=== PATIENT | female | born 1955 | race Caucasian/White ===

== ENCOUNTER → 2017-04-13 | Outpatient (CLI) | payer BC ==
[2017-04-13 14:22] LABS: T4, Free (Free Thyroxine) 1.16 ng/dL (0.78-2.19)
== END | disposition home or self-care (01) ==
LOC: LABWHC1 13:21
PROVIDERS: ATTEND Obstetrics & Gynecology
DX: E78.4 Other hyperlipidemia (principal)
CPT/HCPCS: 36415; 80061; 82947; 84439; 84443

== ENCOUNTER → 2017-06-07 | Outpatient (CLI) | payer BC ==
[2017-06-07 16:04] LABS: Basophils # (A) 0.1 k/uL (0-0.2); Basophils % (A) 2 %; Eosinophils # (A) 0.6 k/uL (0-0.7); Eosinophils % (A) 7 %; HCT 43.2 % (34.0-46.0); Lymphocytes # (A) 1.9 k/uL (1.0-4.8); Lymphocytes % (A) 24 %; MCH 29.3 pg (25.0-35.0); MCHC 32.4 g/dL (31.0-37.0); MCV 90.4 fL (80.0-100.0); Mean Platelet Volume 7.6; Monocytes # (A) 0.4 k/uL (0-1.0); Monocytes % (A) 5 %; Neutrophils # (A) 4.8 k/uL (1.3-7.7); Neutrophils % (A) 61 %; Platelet Count 224 k/uL (150-450); RBC 4.78 m/uL (3.80-5.40); RDW 13.2 % (11.5-15.5); WBC 7.9 k/uL (3.8-10.6)
== END | disposition home or self-care (01) ==
LOC: PAT 14:55
PROVIDERS: ATTEND Obstetrics & Gynecology
DX: Z01.818 Encounter for other preprocedural examination (principal); Z01.812 Encounter for preprocedural laboratory examination
CPT/HCPCS: 36415; 85025; 93005

== ENCOUNTER → 2017-06-13 | Outpatient (CLI) | payer BC ==
--- NOTE | 2017-06-13 13:25 | BD ---
EXAMINATION TYPE: MG DEXA axial skeleton. DATE OF EXAM: 06/13/2017 COMPARISON: NONE CLINICAL HISTORY: Height: 5 FT 2 IN Weight: 165 FRAX RISK QUESTIONS: Alcohol (3 or more units per day): NO Family History (Parent hip fracture): NO Glucocorticoids (More than 3mos): NO (Ex: prednisone, prednisolone, methylprednisolone, dexamethasone, and hydrocortisone). History of Fracture in Adulthood: NO Secondary Osteoporosis: 1. Type 1 Diabetes: NO 2. Hyperthyroidism: NO 3. Menopause before 45: NO 4. Malnutrition: NO 5. Chronic liver disease: NO Rheumatoid Arthritis: NO Current Tobacco Use: NO RISK FACTORS HISTORY OF: Family History of Osteoporosis: YES Active: YES Postmenopausal woman: If Premenopausal, do you have irregular periods: YES MEDICATIONS: Additional Medications: NONE Additional History: EXAM MEASUREMENTS: Bone mineral densitometry was performed using the [employer]. Bone mineral density as measured about the Lumbar spine is: ----- L1-L4(G/cm2): 1.291 T Score Values are as follows: ----- L2: 0.3 ----- L3: 1.0 ----- L4: 1.5 ----- L1-L4: 0.9 BASELINE Bone mineral density about the R hip (g/cm2): 1.079 Bone mineral density about the L hip (g/cm2): 0.977 T Score values are as follows: -----R Neck: 0.3 -----L Neck: -0.4 -----R Total: 0.9 -----L Total: 0.0 BASELINE IMPRESSION: Normal (Values between +1 and -1 indicate normal bone mass). Consider repeating this study in 5 year s or sooner if there is some new clinical indication. NOTE: T-SCORE=SD OF THE YOUNG ADULT MEAN.
--- NOTE | 2017-06-15 10:48 | MM ---
Reason for exam: screening (asymptomatic). Last mammogram was performed 1 year and 8 months ago. History: Patient is postmenopausal. Family history of breast cancer in mother at age 80. Physical Findings: A clinical breast exam by your physician is recommended on an annual basis and results should be correlated with mammographic findings. MG 3D Screening Mammo W/Cad Bilateral CC and MLO view(s) were taken. Prior study comparison: October 15, 2015, bilateral MG screening mammo w CAD. August 10, 2014, bilateral MG screening mammo w CAD. The breast tissue is heterogeneously dense. This may lower the sensitivity of mammography. No suspicious abnormality. No significant changes when compared with prior studies. ASSESSMENT: Negative, BI-RAD 1 RECOMMENDATION: Routine screening mammogram of both breasts in 1 year.
== END | disposition home or self-care (01) ==
LOC: RADMAMWWP 08:09
PROVIDERS: ATTEND Obstetrics & Gynecology
DX: Z12.31 Encounter for screening mammogram for malignant neoplasm of breast (principal); Z13.820 Encounter for screening for osteoporosis; Z80.3 Family history of malignant neoplasm of breast
CPT/HCPCS: 77063; 77067; 77080

== ENCOUNTER 2017-06-15 06:00 | Day surgery (SDC) | payer BC ==
--- NOTE | 2017-06-14 07:18 | P.HPOB ---
History of Present Illness H&P Date: 06/14/17 Chief Complaint: Post menopausal bleeding This patient is a pleasant 61-year-old 2 para 2 female who presented to my office with complaints of postmenopausal bleeding. Patient's history is such that she had an episode of this approximately 2 years ago that time evaluation including a D&C was negative. Patient not had been any bleeding since until approximately 2 months ago where she's had 2 episodes of what she thought was light menstrual bleeding. Repeat pelvic ultrasound showed chronic fibroids and endometrium of 4 mm. Patient now presents for evaluation by hysteroscopy and repeat D&C. Review of Systems Genitourinary: Reports abnormal vaginal bleeding Menstruation: Reports as per HPI, Reports postmenopausal Past Medical History Past Medical History: GERD/Reflux Additional Past Medical History / Comment(s): Known uterine fibroid. History of Any Multi-Drug Resistant Organisms: None Reported Past Surgical History: Orthopedic Surgery Additional Past Surgical History / Comment(s): ORIF RT FOOT. D & C. COLONOSCOPY Past Anesthesia/Blood Transfusion Reactions: No Reported Reaction Past Psychological History: No Psychological Hx Reported Smoking Status: Never smoker Past Alcohol Use History: None Reported Past Drug Use History: None Reported - Past Family History Mother Family Medical History: Cancer Medications and Allergies Home Medications Medication Instructions Recorded Confirmed Type Acetaminophen-Codeine 300-30mg 1 - 2 tab PO Q4H PRN #30 tablet 10/05/15 Rx [Tylenol #3] Ibuprofen [Motrin] 600 mg PO Q6HR PRN #40 tab 10/05/15 Rx Allergies Allergy/AdvReac Type Severity Reaction Status Date / Time Sulfa (Sulfonamide Allergy Rash/Hives Verified 10/05/15 07:05 Antibiotics) Exam - OBG Physical Exam Abdomen: bowel sounds normal, no diffuse tenderness, no bruit present, no guarding noted, no hepatomegaly, no splenomegaly, no mass Vulva: both: normal Vagina: normal moisture, no discharge, atrophic mucosa Cervix: no lesion, no discharge Uterus: enlarged Results Ultrasound shows an enlarged uterus 10 x 7.3 x 5 cm with known fibroids that have decreased in size. Endometrium was 4 mm. Assessment and Plan Assessment: This is a pleasant 61-year-old 2 para 2 female with a recurrent episode of postmenopausal bleeding. Although her ultrasound is not concerning as far as endometrial thickness, has been 2 years approximately since she's had endometrial sampling and I recommended a repeat endometrial sampling by hysteroscopy D&C. Patient understands this procedure and risks including risks of infection, bleeding, possible uterine perforation. All the patient's questions are answered and a written consent is obtained. (1) Postmenopausal vaginal bleeding Status: Acute Code(s): N95.0 - POSTMENOPAUSAL BLEEDING SNOMED Code(s): 35189990
[2017-06-14 08:22] VITALS: BMI 30.2
[~2017-06-15 06:00] MED LIST: DEXAMETHASONE SOD PHOSPHATE 10 MG/ML 1 ML VIAL IV ONE; HYDROmorphone 0.5 MG/0.5 ML SYRINGE IVP PRN; LACTATED RINGERS 1,000 ML IV SCH; LIDOCAINE 1% 20 ML VIAL (10MG/ML) FOR IV START INTRADERMA PRN; MIDAZOLAM 2 MG/2 ML VIAL IV PRN; MORPHINE SULFATE 2 MG/ML SYRINGE IV PRN; ONDANSETRON 4 MG/2 ML VIAL IVP ONE; Pre Op ABX Message 1 EACH MISC MISCELLANE ONE; SCOPOLAMINE 1.5MG/72HR PATCH TRANSDERM ONE
[2017-06-15] MEDS ORDERED: MIDAZOLAM 2 MG/2 ML VIAL IV ONE (06:48)
[2017-06-15] MEDS ORDERED: FAMOTIDINE 20 MG/2 ML VIAL IV ONE (06:50)
[2017-06-15] MEDS ORDERED: SUCCINYLCHOLINE CHLORIDE 100 MG/5 ML SYR IV ONE (06:58)
[2017-06-15] MEDS ORDERED: LIDOCAINE 1% INJ 10MG/ML (20 ML MDV) ONE (06:58)
[2017-06-15] MEDS ORDERED: LABETALOL 5 MG/ML VIAL MDV ONE (06:58)
[2017-06-15] MEDS ORDERED: PROPOFOL 10 MG/ML 20 ML VIAL IV ONE (06:58)
[2017-06-15] MEDS ORDERED: KETOROLAC 30 MG/ML 1 ML VIAL ONE (06:58)
[2017-06-15] MEDS ORDERED: fentaNYL (PF) 50 MCG/ML 2 ML AMP ONE (06:58)
[2017-06-15 07:00] LABS: Cholesterol 209 mg/dL (<200); HDL Cholesterol 46 mg/dL (40-60); LDL Cholesterol,Calculated 143 mg/dL (0-99); Triglycerides 101 mg/dL (<150)
--- NOTE | 2017-06-15 07:42 | P.OP ---
Date of Procedure: 06/15/17 Preoperative Diagnosis: Post menopausal bleeding Postoperative Diagnosis: Same Procedure(s) Performed: #1: Hysteroscopy. #2: Dilation and curettage Anesthesia: FAYE Surgeon: Frederick Amaya Estimated Blood Loss (ml): 10 Urine output (ml): 20 Pathology: other (Uterine curettings) Condition: stable Disposition: PACU Indications for Procedure: Please see dictated H&P for intimate details of this patient's admission. Brief summary is a pleasant 61-year-old female whose had 2 episodes of postmenopausal bleeding. Patient's evaluations included a pelvic ultrasound shows normal endometrial thickening however now she presents for further evaluation with hysteroscopy D&C. Sharla and I have discussed the surgery and risks: Risks of infection, bleeding, possible uterine perforation. All the patient's questions been answered written consent is obtained. Operative Findings: This patient had a small polypoid type areas of the posterior uterus. This did not look concerning however in general the lining looked somewhat proliferative. Description of Procedure: This patient is taken to the operating room where she is laid in the supine position. She subsequent undergoes general endotracheal anesthesia without incident. With an adequate level of anesthesia she's aced in the dorsal lithotomy position. Examination under anesthesia shows her uterus to be mid position and slightly enlarged due to known uterine fibroids. She has a vaginal perineal prep and drape. I drain the bladder for 20 mL of clear urine. Then placed a speculum in the posterior vagina and anterior lip of cervix is grabbed with an Allis clamp. Uterus is gently sound to 9 cm. Gentle dilation is done at this time to allow the hysteroscope into the uterine cavity. Hysteroscopy is performed there is no evidence of any submucosal fibroids, there is a thickened area posterior wall that looks to be like a polypoid type growth her just proliferative endometrium. There is no overtly concerning areas and the entire uterine cavity. With this done the hysteroscope was then removed. I gently dilate the cervix more to allow a polyp forceps into the uterine cavity, do not remove any tissue with the polyp forceps. I then do a vigorous and thorough 4 quadrant curettage. This tissue is sent off to pathology. There is minimal bleeding. This point the procedure is then ended. The Allis clamp and weighted speculum was removed. All counts are correct 3. There are no complications. Patient's taken recovery room in satisfactory condition.
[2017-06-15 08:01] VITALS: TEMP 97.8
[2017-06-15 08:04] VITALS: RESP 16
[2017-06-15 08:42] VITALS: PULSE 72
[2017-06-15 08:57] VITALS: BP 143/80
== END 2017-06-15 09:30 | disposition home or self-care (01) ==
LOC: OR 06:00
PROVIDERS: ATTEND Obstetrics & Gynecology
DX: N95.0 Postmenopausal bleeding (principal); D25.9 Leiomyoma of uterus, unspecified; K21.9 Gastro-esophageal reflux disease without esophagitis; Z79.899 Other long term (current) drug therapy; Z88.2 Allergy status to sulfonamides
CPT/HCPCS: 81025; 88305; 80061; 83001; 82670; 58558; J2250; J1100; J2405; J2001; J3010; J1885; J0330; J2704

== ENCOUNTER → 2017-11-26 | Outpatient (CLI) | payer BC ==
--- NOTE | 2017-11-27 21:29 | MR ---
EXAMINATION TYPE: MR knee LT wo con DATE OF EXAM: 11/26/2017 COMPARISON: Prior MRI left knee September 01, 2013. HISTORY: Left knee pain per order. Pain for 4 months per patient. TECHNIQUE: Multiplanar, multisequence images of the knee is performed without IV contrast. FINDINGS: MEDIAL MENISCUS: Anterior horn is intact without tear. There is oblique and increased vertical signal posterior horn medial meniscus extending to inferior articular surface sagittal image 24 consistent with full-thickness meniscal tear redemonstrated. LATERAL MENISCUS: Anterior and posterior horns are intact without tear. CRUCIATE LIGAMENTS: The anterior and posterior cruciate ligaments are intact and unremarkable. COLLATERAL LIGAMENTS: The medial collateral ligament and lateral collateral ligament complex are inta ct and unremarkable. EXTENSOR MECHANISM: Visualized quadriceps and patellar tendons are intact. EFFUSION: There is stable small suprapatellar joint effusion. POPLITEAL CYST: Tiny popliteal/gradner cyst is best appreciated on axial images. TRICOMPARTMENT SPACES: Mild tricompartment joint space loss is redemonstrated with minimal spurring CARTILAGE: Fissuring of articular cartilage posterior patellar pulmonary apex is redemonstrated [place] mpartment articular cartilage is otherwise fairly well maintained. BONE MARROW SIGNAL: There is stable 9 mm oval well-circumscribed lesion in the posterior lateral prox imal tibial metaphysis felt to reflect enchondroma or other benign etiology. OTHER: There is stable 1.2 cm oval T2 hyperintense lesion posterior to the distal femoral diaphysis s agittal image 17 possible small soft tissue hemangioma. IMPRESSION: Full-thickness tear posterior horn of medial meniscus is now felt present. Other findings stable as detailed above from prior MRI.
== END | disposition home or self-care (01) ==
LOC: RADMRIMAIN 14:36
PROVIDERS: ATTEND Orthopaedic Surgery
DX: S83.242A Other tear of medial meniscus, current injury, left knee, initial encounter (principal); M71.22 Synovial cyst of popliteal space [Baker], left knee; M89.9 Disorder of bone, unspecified

== ENCOUNTER 2018-10-24 11:14 | Day surgery (SDC) | payer BC ==
[2018-10-07 11:45] VITALS: BMI 29.2
--- NOTE | 2018-10-23 14:39 | HP ---
HISTORY AND PHYSICAL DATE OF SURGERY: 10/24/2018 Sharla Chopra is a 63-year-old patient seen with progressive left knee pain. We discussed treatment options. She elected to proceed with left knee arthroscopy. Consent regarding procedure was obtained. PAST MEDICAL HISTORY: Hypercholesterolemia. PAST SURGICAL HISTORY: Foot surgery. DAILY MEDICATIONS: None. ALLERGIES: SULFA. SOCIAL HISTORY: She denies tobacco use. PHYSICAL EVALUATION OF THE LEFT KNEE: Her range of motion is 0 to 120 degrees. There is a mild effusion present. Tenderness on lateral joint line. Positive lateral Spike's. Ligaments are stable. Hip rotation without pain. Distal neurovascular exam intact. LEFT KNEE RADIOGRAPHS: Reveal moderate medial moderate patellofemoral compartment osteoarthritis. Left knee MRI revealed medial meniscal tear. IMPRESSION: 1. Internal derangement, left knee with medial meniscal tear. 2. Hyperlipidemia. PLAN: Left knee arthroscopy with partial meniscectomy and debridement. MMODL / IJN: [id number] /
[~2018-10-24 11:14] MED LIST changes: -LIDOCAINE 1% 20 ML VIAL (10MG/ML) FOR IV START INTRADERMA PRN; -MORPHINE SULFATE 2 MG/ML SYRINGE IV PRN; -ONDANSETRON 4 MG/2 ML VIAL IVP ONE; -Pre Op ABX Message 1 EACH MISC MISCELLANE ONE; -SCOPOLAMINE 1.5MG/72HR PATCH TRANSDERM ONE
[2018-10-24] MEDS: ONDANSETRON 4 MG/2 ML VIAL IVP ONE ×2 (12:01→14:39)
[2018-10-24] MEDS ORDERED: SCOPOLAMINE 1.5MG/72HR PATCH TRANSDERM ONE (12:21)
[2018-10-24] MEDS ORDERED: FAMOTIDINE 20 MG/2 ML VIAL IVP ONE (12:21)
[2018-10-24] MEDS ORDERED: fentaNYL (PF) 50 MCG/ML 2 ML AMP ONE (13:10)
[2018-10-24] MEDS ORDERED: PROPOFOL 10 MG/ML 20 ML VIAL IV ONE (13:10)
[2018-10-24] MEDS ORDERED: LIDOCAINE 1% INJ 10MG/ML (20 ML MDV) ONE (13:10)
[2018-10-24] MEDS ORDERED: SUCCINYLCHOLINE CHLORIDE 100 MG/5 ML SYR IV ONE (13:10)
[2018-10-24] MEDS ORDERED: METOPROLOL TARTRATE 5 MG/5 ML VIAL IVP ONE (13:10)
[2018-10-24] MEDS ORDERED: BUPIVACAIN-EPI 0.25%-1:200,000 30 ML VIAL INTRAARTIC ONE ×2 (13:16→13:50)
--- NOTE | 2018-10-24 14:09 | P.OP ---
Date of Procedure: 10/24/18 Preoperative Diagnosis: Internal derangement left knee Postoperative Diagnosis: 1. Tear medial meniscus left knee 2. Grade 2 chondromalacia medial femoral condyle left knee 3. Grade 2/3 chondromalacia lateral femoral condyle left knee 4. Reactive synovitis medial, lateral and suprapatellar compartments left knee Procedure(s) Performed: 1. Arthroscopic partial medial meniscectomy left knee 2. Arthroscopic chondroplasty medial femoral condyle left knee 3. Arthroscopic chondroplasty lateral femoral condyle left knee 4.. Arthroscopic partial synovectomy medial, lateral and suprapatellar compartments left knee Anesthesia: KWAKUA, local Surgeon: Dave Murguia Estimated Blood Loss (ml): 7 Pathology: none sent Condition: stable Disposition: PACU Indications for Procedure: 63-year-old patient seen with progressive left knee pain. After having treatment options discussed, she elected to proceed with arthroscopy. Operative Findings: See description of procedure Description of Procedure: Patient was taken to the operative suite. Patient underwent a general anesthetic by the department of anesthesia. Patient was given preoperative antibiotics. The left lower extremity was placed in a well-padded arthroscopic leg rose. The left leg was prepped and draped in the normal sterile orthopedic fashion. A lateral parapatellar and suprapatellar incision was made. Trochars were inserted. Arthroscopy was initiated. Suprapatellar pouch revealed diffuse thick reactive synovitis. The patellofemoral joint appeared to articulate congruently. There was grade 1 chondromalacia with no osteochondral tears present.. The scope was guided into the medial gutter. No loose bodies or plica were identified. The scope was then guided into the medial compartment. A medial parapatellar incision was made. Trocar inserted followed by probe. There was a radial tear involving the junction posterior midbody medial meniscus. There were grade 2 chondromalacia changes medial femoral condyle with osteochondral flap tears present. There was reactive synovitis anteriorly. I performed a partial medial meniscectomy down to stable tissue. I performed a chondroplasty of the medial femoral condyle down to stable tissue. I performed a partial synovectomy decompressing the reactive synovitis. The residual meniscus was stable. The residual osteochondral surface was stable. There was good decompression of the synovitis. Scope and probe were then guided into the intercondylar notch. Cruciates were identified, probed and found to be stable. The scope and probe were then guided into lateral compartment. Lateral meniscus was probed and found to be stable. There were grade 2/3 chondral malacia changes on the weightbearing surface lateral femoral condyle with osteochondral flap tears present. There was some reactive synovitis anteriorly. Of ectomy decompressing reactive synovitis. The residual osteochondral surface was stable. There was good decompression of synovitis. The scope was in guided back into the suprapatellar compartment. I introduced a motorized shaver into the suprapatellar compartment. I debrided some piecemeal fragments of meniscus I encountered. I performed a partial synovectomy decompressing the reactive synovitis within the suprapatellar compartment. The shaver was removed. I took one more look on the entire knee, no residual debris. Instruments were now removed from the joint. The joint was infiltrated with .25% Marcaine. Steri- Strips were applied to the portal sites. Sterile dressings were applied. The patient was placed into a CIERA hose. No tourniquet was utilized. The patient was awakened, transferred to a bed and taken to recovery stable satisfactory condition.
[2018-10-24 14:11] VITALS: TEMP 96.9
[2018-10-24 14:18] VITALS: RESP 16
[2018-10-24] MEDS ORDERED: LABETALOL 5 MG/ML VIAL MDV IVP ONE (15:18)
[2018-10-24 15:46] VITALS: BP 145/86; PULSE 75
== END 2018-10-24 16:48 | disposition home or self-care (01) ==
LOC: OR 11:14
PROVIDERS: ATTEND Orthopaedic Surgery
DX: S83.242A Other tear of medial meniscus, current injury, left knee, initial encounter (principal); X58.XXXA Exposure to other specified factors, initial encounter; M94.262 Chondromalacia, left knee; M65.862 Other synovitis and tenosynovitis, left lower leg; E78.00 Pure hypercholesterolemia, unspecified; E78.5 Hyperlipidemia, unspecified; K21.9 Gastro-esophageal reflux disease without esophagitis; Z79.899 Other long term (current) drug therapy; Z88.2 Allergy status to sulfonamides
CPT/HCPCS: 29881; 29876; J2250; J1100; J2405; J0690; J2001; J3010; J0330; J2704; J1170

== ENCOUNTER → 2019-01-15 | Outpatient (CLI) | payer BC ==
--- NOTE | 2019-01-17 09:55 | MM ---
Reason for exam: screening (asymptomatic). Last mammogram was performed 1 year and 7 months ago. History: Patient is postmenopausal. Family history of breast cancer in mother at age 80. Physical Findings: A clinical breast exam by your physician is recommended on an annual basis and results should be correlated with mammographic findings. MG 3D Screening Mammo W/Cad Bilateral CC and MLO view(s) were taken. Prior study comparison: June 13, 2017, bilateral MG 3d screening mammo w/cad. October 15, 2015, bilateral MG screening mammo w CAD. The breast tissue is heterogeneously dense. This may lower the sensitivity of mammography. There is no discrete abnormality. ASSESSMENT: Negative, BI-RAD 1 RECOMMENDATION: Routine screening mammogram of both breasts in 1 year.
== END | disposition home or self-care (01) ==
LOC: RADMAMWWP 14:00
PROVIDERS: ATTEND Obstetrics & Gynecology
DX: Z12.31 Encounter for screening mammogram for malignant neoplasm of breast (principal)
CPT/HCPCS: 77063; 77067

== ENCOUNTER 2019-03-28 06:12 | Day surgery (SDC) | payer BC ==
[2019-03-27 10:45] VITALS: BMI 30.1
[~2019-03-28 06:12] MED LIST changes: -DEXAMETHASONE SOD PHOSPHATE 10 MG/ML 1 ML VIAL IV ONE; -HYDROmorphone 0.5 MG/0.5 ML SYRINGE IVP PRN; +LIDOCAINE 1% 20 ML VIAL (10MG/ML) FOR IV START INTRADERMA PRN; -MIDAZOLAM 2 MG/2 ML VIAL IV PRN
[2019-03-28 06:58] VITALS: TEMP 97.6
[2019-03-28] MEDS ORDERED: ONDANSETRON 4 MG/2 ML VIAL IVP ONE (07:39)
[2019-03-28] MEDS ORDERED: DEXAMETHASONE SOD PHOSPHATE 10 MG/ML 1 ML VIAL IV ONE (07:40)
[2019-03-28] MEDS ORDERED: SCOPOLAMINE 1.5MG/72HR PATCH TRANSDERM ONE (07:40)
[2019-03-28] MEDS ORDERED: fentaNYL (PF) 50 MCG/ML 2 ML AMP ONE (07:50)
[2019-03-28] MEDS ORDERED: PROPOFOL 10 MG/ML 20 ML VIAL IV ONE (07:50)
[2019-03-28] MEDS ORDERED: MIDAZOLAM 2 MG/2 ML VIAL ONE (07:50)
[2019-03-28] MEDS ORDERED: LIDOCAINE 1% INJ 10MG/ML (20 ML MDV) ONE (07:50)
--- NOTE | 2019-03-28 08:12 | P.PCN ---
Date of Procedure: 03/28/19 Procedure(s) Performed: Brief history: Patient is a pleasant 63-year-old white female scheduled for an elective upper endoscopy as well as colonoscopy as a part of evaluation of GERD and history of colon polyps. Procedure performed: Esophagogastroduodenoscopy with biopsy Colonoscopy Preoperative diagnosis: GERD History of colon polyps Anesthesia: MAC Procedure: After informed consent was obtained from the patient was brought into the endoscopy unit and IV sedation was administered by anesthesia under continuous monitoring. Initially upper endoscopy was done. The Olympus GF 160 video endoscope was inserted inserted into the mouth and esophagus intubated without any difficulty and was gradually advanced into the stomach and duodenum and carefully examined. The bulb and second part of the duodenum appeared normal. The scope was then withdrawn into the stomach adequately insufflated with air and upon careful examination the antrum had mild gastritis and biopsies were done from this area. The body, cardia and fundus appeared normal. The scope was then withdrawn into the esophagus. The GE junction was located at 40 cm to the incisors. It appeared regular with mild patchy erythema consistent with LA grade a reflux esophagitis. Rest of the esophagus appeared normal. Patient tolerated the procedure well. At this time the patient continued to remain sedation. Initial digital rectal examination was normal. Olympus CF 160 video colonoscope was then inserted into the rectum and gradually advanced to the cecum without any difficulty. Careful examination was performed as the scope was gradually being withdrawn. The prep was excellent. The cecum, ascending colon, transverse colon, descending colon, sigmoid colon and rectum appeared normal. Retroflexion was performed in the rectum and no lesions were noted. Patient tolerated the procedure well. Impression: 1. Upper endoscopy revealed mild antral gastritis and LA grade A reflux esophagitis 2. Colonoscopy was essentially within normal limits with no evidence of colitis or colorectal neoplasia Recommendations: Findings of this examination were discussed with the patient as well as[ her family. She was advised to follow with the biopsy results. She can use [id number] H2 blockers as needed for reflux symptoms. She can have a repeat surveillance colonoscopy in 5 years from now because of the prior history of colon polyps
[2019-03-28 08:16] VITALS: RESP 16
[2019-03-28 08:26] VITALS: BP 145/83; PULSE 67
== END 2019-03-28 08:48 | disposition home or self-care (01) ==
LOC: ORWHC2ENDO 06:12
PROVIDERS: ATTEND Internal Medicine Gastroenterology
DX: Z12.11 Encounter for screening for malignant neoplasm of colon (principal); Z86.010 Personal history of colon polyps; K21.0 Gastro-esophageal reflux disease with esophagitis; K29.50 Unspecified chronic gastritis without bleeding; E78.5 Hyperlipidemia, unspecified; G43.909 Migraine, unspecified, not intractable, without status migrainosus; M25.552 Pain in left hip; Z88.2 Allergy status to sulfonamides; Z91.09 Other allergy status, other than to drugs and biological substances
CPT/HCPCS: 88305; 43239; J2250; J1100; J2405; J2001; J3010; J2704; G0105; 45378

== ENCOUNTER → 2020-02-12 | Outpatient (CLI) | payer BC ==
--- NOTE | 2020-02-13 14:42 | MM ---
Reason for exam: screening (asymptomatic). Last mammogram was performed 1 year and 1 month ago. History: Patient is postmenopausal. Family history of breast cancer in mother at age 80. Physical Findings: A clinical breast exam by your physician is recommended on an annual basis and results should be correlated with mammographic findings. MG 3D Screening Mammo W/Cad Bilateral CC and MLO view(s) were taken. Prior study comparison: January 15, 2019, bilateral MG 3d screening mammo w/cad. June 13, 2017, bilateral MG 3d screening mammo w/cad. Focal asymmetry left upper outer quadrant, anterior position. This finding is changed when compared with previous exams. ASSESSMENT: Incomplete: need additional imaging evaluation, BI-RAD 0 RECOMMENDATION: Special view mammogram of the left breast. If lesion persists on supplemental views, image directed ultrasound is recommended. [facility] will attempt to contact patient to return for supplemental views and ultrasound if indicated.
== END | disposition home or self-care (01) ==
LOC: RADMAMWWP 13:54
PROVIDERS: ATTEND Obstetrics & Gynecology
DX: Z12.31 Encounter for screening mammogram for malignant neoplasm of breast (principal); Z80.3 Family history of malignant neoplasm of breast
CPT/HCPCS: 77063; 77067

== ENCOUNTER → 2020-02-17 | Outpatient (CLI) | payer BC ==
--- NOTE | 2020-02-17 11:21 | MM ---
Reason for exam: additional evaluation requested from abnormal screening. Last mammogram was performed less than 1 month ago. History: Patient is postmenopausal. Family history of breast cancer in mother at age 80. Physical Findings: Nurse did not find any significant physical abnormalities on exam. MG 3D Work Up W/Cad LT Spot compression CC, spot compression MLO, and LM view(s) were taken of the left breast. Prior study comparison: February 12, 2020, bilateral MG 3d screening mammo w/cad. January 15, 2019, bilateral MG 3d screening mammo w/cad. The breast tissue is heterogeneously dense. This may lower the sensitivity of mammography. Focal asymmetry left upper outer quadrant, decreased on compression, ML view. This finding is changed when compared with previous exams. These results were verbally communicated with the patient and result sheet given to the patient on 02/17/20. ASSESSMENT: Incomplete: need additional imaging evaluation, BI-RAD 0 RECOMMENDATION: Ultrasound of the left breast.
--- NOTE | 2020-02-17 11:22 | USB ---
Reason for exam: additional evaluation requested from abnormal screening. History: Patient is postmenopausal. Family history of breast cancer in mother at age 80. US Breast Workup Limited LT Technologist: Hannah Boone Left limited breast ultrasound including focal area of concern, retroareolar and axilla demonstrates no cystic or solid lesion seen. These results were verbally communicated with the patient and result sheet given to the patient on 02/17/20. ASSESSMENT: Negative, BI-RAD 1 RECOMMENDATION: Follow-up diagnostic mammogram of the left breast in 6 months.
== END | disposition home or self-care (01) ==
LOC: RADMAMWWP 09:43
PROVIDERS: ATTEND Obstetrics & Gynecology
DX: R92.8 Other abnormal and inconclusive findings on diagnostic imaging of breast (principal)
CPT/HCPCS: 77061; 77065

== ENCOUNTER → 2020-08-18 | Outpatient (CLI) | payer BC ==
--- NOTE | 2020-08-18 14:53 | MM ---
Reason for exam: follow-up at short interval from prior study. Last mammogram was performed 6 months ago. History: Patient is postmenopausal. Family history of breast cancer in mother at age 80. Physical Findings: Nurse did not find any significant physical abnormalities on exam. MG 3D Diag Mammo W/Cad LT CC and MLO view(s) were taken of the left breast. Prior study comparison: February 17, 2020, left breast MG 3d work up w/cad LT. February 12, 2020, bilateral MG 3d screening mammo w/cad. The breast tissue is heterogeneously dense. This may lower the sensitivity of mammography. Asymmetric breast tissue left upper outer quadrant, stable. There is no discrete abnormality. These results were verbally communicated with the patient and result sheet given to the patient on 08/18/20. ASSESSMENT: Benign, BI-RAD 2 RECOMMENDATION: Return to routine screening mammogram schedule for both breasts. Back on schedule for February 2021.
== END | disposition home or self-care (01) ==
LOC: RADMAMWWP 10:28
PROVIDERS: ATTEND Obstetrics & Gynecology
DX: N64.89 Other specified disorders of breast (principal); R92.2 Inconclusive mammogram; Z80.3 Family history of malignant neoplasm of breast; Z78.0 Asymptomatic menopausal state
CPT/HCPCS: 77061; 77065

== ENCOUNTER 2021-01-30 21:22 | Emergency (ER) | payer BC ==
[2021-01-30 22:06] VITALS: TEMP 99.3
[2021-01-30] MEDS ORDERED: BAMLANIVIMAB (EUA) 700 MG, ETESEVIMAB (EUA) 1,400 MG in SODIUM CHLORIDE 0.9% 50 ML IVPB ONE (23:15)
[2021-01-30] MEDS ORDERED: SODIUM CHLORIDE 0.9% 50 ML IVPB ONE (23:15)
--- NOTE | 2021-01-30 23:23 | ED ---
URI HPI - General Chief Complaint: Upper Respiratory Infection Stated Complaint: COVID Test Time Seen by Provider: 01/30/21 22:50 Source: patient, RN notes reviewed Mode of arrival: ambulatory Limitations: no limitations - History of Present Illness Initial Comments: Patient is a 65-year-old female that presents to the emergency Department stating that she tested positive at home for Covid but once or be test in the emergency room. Patient notes she has a mild cough and fatigue and diarrhea. She denied any other symptoms. She was otherwise well-appearing. She notes she is tolerating orals well. She denied chest pain shortness of breath headache nausea vomiting constipation fever fatigue chills. - Related Data Home Medications Medication Instructions Recorded Confirmed No Known Home Medications 03/27/19 03/28/19 Allergies Allergy/AdvReac Type Severity Reaction Status Date / Time adhesive tape Allergy Rash/Hives,REDNESS Verified 01/30/21 22:06 AND BUMPS" Sulfa (Sulfonamide Allergy Rash/Hives Verified 01/30/21 22:06 Antibiotics) Review of Systems ROS Statement: Those systems with pertinent positive or pertinent negative responses have been documented in the HPI. ROS Other: All systems not noted in ROS Statement are negative. Past Medical History Past Medical History: GERD/Reflux, Hyperlipidemia, Osteoarthritis (OA) Additional Past Medical History / Comment(s): " SOME PROBLEMS WITH POSITIONING OF LEFT LEG AND HIP " , MIGRAINE HEADACHES , RETAINS FLUID IN LEGS AT TIMES History of Any Multi-Drug Resistant Organisms: None Reported Past Surgical History: Orthopedic Surgery Additional Past Surgical History / Comment(s): ORIF RT FOOT, ARTHROSCOPIC LEFT KNEE. D & C. COLONOSCOPY Past Anesthesia/Blood Transfusion Reactions: Motion Sickness Past Psychological History: No Psychological Hx Reported Smoking Status: Never smoker Past Alcohol Use History: Rare Past Drug Use History: None Reported - Past Family History Mother Family Medical History: Cancer Additional Family Medical History / Comment(s): BREAST CANCER General Exam Limitations: no limitations General appearance: alert, in no apparent distress Head exam: Present: atraumatic, normocephalic, normal inspection Eye exam: Present: normal appearance, PERRL, EOMI. Absent: scleral icterus, conjunctival injection, periorbital swelling ENT exam: Present: normal exam, mucous membranes moist Neck exam: Present: normal inspection. Absent: tenderness, meningismus, lymphadenopathy Respiratory exam: Present: normal lung sounds bilaterally. Absent: respiratory distress, wheezes, rales, rhonchi, stridor Cardiovascular Exam: Present: regular rate, normal rhythm, normal heart sounds. Absent: systolic murmur, diastolic murmur, rubs, gallop, clicks Extremities exam: Present: normal inspection, full ROM, normal capillary refill. Absent: tenderness, pedal edema, joint swelling, calf tenderness Neurological exam: Present: alert, oriented X3 Psychiatric exam: Present: normal affect, normal mood Skin exam: Present: warm, dry, intact, normal color. Absent: rash Course Vital Signs 01/30/21 22:02 Temperature 99.3 F Pulse Rate 89 Respiratory 16 Rate Blood Pressure 139/88 O2 Sat by Pulse 96 Oximetry Medical Decision Making - Medical Decision Making 65-year-old female positive at-home Covid test, fatigue and diarrhea with a cough. Covid test 3 ordered. Covid test positive. Patient does meet criteria for monoclonal antibody infusion and wishes to undergo infusion. Patient is agreeable with discharge home after infusion. Case discussed with Dr. Villela, patient can discharge home. - Lab Data Lab Results 01/30/21 Range/Units 22:09 Coronavirus (PCR) Detected A (Not Detectd) Disposition Clinical Impression: COVID Disposition: HOME SELF-CARE Condition: Stable Instructions (If sedation given, give patient instructions): Coronavirus Disease 2019 (COVID-19) Additional Instructions: Please return to the Emergency Department if symptoms worsen or any other concerns. Follow-up with primary care 1-2 days. Quarantine per CDC guidelines. Take Tylenol Motrin as needed for any fevers. Is patient prescribed a controlled substance at d/c from ED?: No Referrals: Sourav Jacobs DO [Primary Care Provider] - 1-2 days Time of Disposition: 23:23
[2021-01-31 00:49] VITALS: BP 134/75; PULSE 71; RESP 20
== END 2021-01-31 00:48 | disposition home or self-care (01) ==
LOC: EC 21:22
DX: U07.1 COVID-19 (principal); Z88.2 Allergy status to sulfonamides; Z91.09 Other allergy status, other than to drugs and biological substances
CPT/HCPCS: 87635; 99284; 96365; U0003; U0005; J3490

== ENCOUNTER → 2021-12-09 | Outpatient (CLI) | payer BC ==
--- NOTE | 2021-12-09 12:55 | CA ---
Transthoracic Echo Report Name: Sharla Chopra Age: 66 Gender: F : 1955 Exam Date: 12/09/2021 08:36 Exam Location: [facility] Ht (in): 63 Wt (lb): 133 Ordering Physician: Sourav Jacobs DO Attending/Referring Phys: Frederick Amaya MD Machine Tech Shannon Vásquez RDCS Procedure CPT: Indications: R07.9 chest pressure Cardiac Hx: Technical Quality: Good Contrast 1: N/A Total Dose (mL): Contrast 2: Total Dose (mL): MEASUREMENTS (Male / Female) Normal Values 2D ECHO LV Diastolic Diameter PLAX 3.8 cm 4.2 - 5.9 / 3.9 - 5.3 cm LV Systolic Diameter PLAX 2.9 cm IVS Diastolic Thickness 1.0 cm 0.6 - 1.0 / 0.6 - 0.9 cm LVPW Diastolic Thickness 1.1 cm 0.6 - 1.0 / 0.6 - 0.9 cm LV Relative Wall Thickness 0.5 RV Internal Dim ED PLAX 2.7 cm LA Systolic Diameter LX 2.8 cm 3.0 - 4.0 / 2.7 - 3.8 cm M-MODE Aortic Root Diameter MM 2.4 cm LA Systolic Diameter MM 3.2 cm LA Ao Ratio MM 1.3 MV E Point Septal Separation 0.3 cm AV Cusp Separation MM 1.6 cm DOPPLER MV Area PHT 3.5 cm??? Mitral E Point Velocity 72.5 cm/s Mitral A Point Velocity 61.7 cm/s Mitral E to A Ratio 1.2 MV Deceleration Time 214.7 ms MV E' Velocity 6.2 cm/s Mitral E to MV E' Ratio 11.8 TR Peak Velocity 200.6 cm/s TR Peak Gradient 16.1 mmHg Right Ventricular Systolic Press 21.1 mmHg FINDINGS Left Ventricle Left ventricular ejection fraction is estimated at 50-55%. Mildly increased left ventricular wall thickness. Right Ventricle Normal right ventricular size and function. Right Atrium Normal right atrial size. Left Atrium Normal left atrial size. Mitral Valve Structurally normal mitral valve. Mild mitral regurgitation. Aortic Valve Trileaflet aortic valve. Aortic valve sclerosis. Tricuspid Valve Structurally normal tricuspid valve. Pulmonic Valve Structurally normal pulmonic valve. Pericardium Normal pericardium. Aorta Normal size aortic root and proximal ascending aorta. CONCLUSIONS Normal left ventricular dimension and systolic function Aortic sclerosis without stenosis or insufficiency Previewed by: Dr. Garcia Daniels MD (Electronically Signed) Final Date: 09 December 2021 12:55
== END | disposition home or self-care (01) ==
LOC: RADECHMAIN 08:20
PROVIDERS: ATTEND Family Medicine
DX: R07.9 Chest pain, unspecified (principal); E78.5 Hyperlipidemia, unspecified
CPT/HCPCS: 93017; 93306

== ENCOUNTER → 2021-12-15 | Outpatient (CLI) | payer BC ==
--- NOTE | 2021-12-15 09:46 | BD ---
EXAMINATION TYPE: Axial Bone Density DATE OF EXAM: 12/15/2021 COMPARISON: NONE CLINICAL HISTORY: 66 years year old Female. ICD-10 CODE: M81.0 AGE-RELATED OSTEOPOROSIS W Height: 5 FT 1 1/2 IN Weight: 135 FRAX RISK QUESTIONS: Alcohol (3 or more units per day): NO Family History (Parent hip fracture): NO Glucocorticoids (More than 3mos): NO (Ex: prednisone, prednisolone, methylprednisolone, dexamethasone, and hydrocortisone). History of Fracture in Adulthood: NO Secondary Osteoporosis: 1. Type 1 Diabetes: NO 2. Hyperthyroidism: NO 3. Menopause before 45: NO 4. Malnutrition: NO 5. Chronic liver disease: NO Rheumatoid Arthritis: NO Current Tobacco Use: NO RISK FACTORS HISTORY OF: Surgery to Spine/Hip(right/left)/Wrist (right/left): NO Family History of Osteoporosis: NO Active: YES Diet low in dairy products/other sources of calcium: NO Postmenopausal woman: YES Take estrogen and/or progesterone medications: NO Lost more than 2 inches in height since high school: YES Frequent falls: NO Poor Health: GOOD Hyperparathyroidism: NO Adrenal Insufficiency: NO MEDICATIONS: Additional Medications: NONE Additional History: EXAM MEASUREMENTS: Bone mineral densitometry was performed using the [employer] System. Bone mineral density as measured about the Lumbar spine is: ----- L1-L4(G/cm2): 1.203 T Score Values are as follows: ----- L1: -0.2 ----- L2: -0.6 ----- L3: 0.6 ----- L4: 0.6 ----- L1-L4: 0.2 Bone mineral density has: DECREASED -6.8 % since study of: 2018 Bone mineral density about the R hip (g/cm2): 0.928 Bone mineral density about the L hip (g/cm2): 0.803 T Score values are as follows: -----R Neck: -0.8 -----L Neck: -1.7 -----R Total: -0.3 -----L Total: -1.5 Bone mineral density has: DECREASED -15.7 % since study of: 2018 FRAX%s: The graph provided illustrates a 9.5 % chance for a major osteoporotic fx and a 1.1 % chance for the hips probability for fx in 10 years time. IMPRESSION: Osteopenia (T Score between -2.5 and -1). There is slightly increased risk of fracture and the patient may be considered for treatment. Re-Screen 2-5 years. NOTE: T-SCORE=SD OF THE YOUNG ADULT MEAN.
--- NOTE | 2021-12-16 08:07 | MM ---
Reason for Exam: Screening (asymptomatic). Last mammogram was performed 1 year(s) and 10 month(s) ago. Patient History: Menarche at age 16. First Full-Term at age 31. Postmenopausal. Mother had breast cancer, age 80. Risk Values: Kim 5 year model risk: 2.9%. NCI Lifetime model risk: 11.3%. Prior Study Comparison: 02/12/2020 Bilateral Screening Mammogram, [facility]. 02/17/2020 Left Diagnostic Mammogram, [facility]. 08/18/2020 Left Diagnostic Mammogram, [facility]. Tissue Density: The breast tissue is heterogeneously dense. This may lower the sensitivity of mammography. Findings: Analyzed By CAD. There is no suspicious group of microcalcifications or new suspicious mass in either breast. No significant change to prior examinations. Overall Assessment: Benign, BI-RAD 2 Management: Screening Mammogram of both breasts in 1 year. A clinical breast exam by your physician is recommended on an annual basis and results should be correlated with mammographic findings. Electronically signed and approved by: Ole Rose D.O.
== END | disposition home or self-care (01) ==
LOC: RADMAMWWP 08:56
PROVIDERS: ATTEND Family Medicine
DX: Z12.31 Encounter for screening mammogram for malignant neoplasm of breast (principal); M81.0 Age-related osteoporosis without current pathological fracture
CPT/HCPCS: 77063; 77067; 77080

== ENCOUNTER → 2021-12-26 | Outpatient (CLI) | payer BC ==
[2021-12-26 19:06] LABS: Basophils # (A) 0.08 X 10*3/uL (0.00-0.10); Basophils % (A) 1.2 %; Eosinophils # (A) 0.29 X 10*3/uL (0.04-0.35); Eosinophils % (A) 4.5 %; HCT 41.7 % (37.2-46.3); HGB 13.7 g/dL (12.0-15.0); Immature Grans, Automated 0.3 %; Lymphocytes # (A) 1.78 X 10*3/uL (0.90-5.00); Lymphocytes % (A) 27.8 %; MCH 30.1 pg (27.0-32.0); MCHC 32.9 g/dL (32.0-37.0); MCV 91.6 fL (80.0-97.0); Mean Platelet Volume 10.8 fL (9.5-12.2); Monocytes # (A) 0.35 X 10*3/uL (0.20-1.00); Monocytes % (A) 5.5 %; NRBC Per 100 WBC 0 /100 WBCS (0.0-0.0); Neutrophils # (A) 3.89 X 10*3/uL (1.80-7.70); Neutrophils % (A) 60.7 %; Platelet Count 211 X 10*3/uL (140-440); RBC 4.55 X 10*6/uL (4.10-5.20); RDW 13.1 % (11.5-14.5); WBC 6.41 X 10*3/uL (4.50-10.00)
== END | disposition home or self-care (01) ==
LOC: LABPAT 11:23
PROVIDERS: ATTEND Surgery
DX: Z01.812 Encounter for preprocedural laboratory examination (principal)
CPT/HCPCS: 85025

== ENCOUNTER 2021-12-30 08:42 | Day surgery (SDC) | payer BC ==
[2021-12-29 10:12] VITALS: BMI 23.5
--- NOTE | 2021-12-29 16:14 | P.GSHP ---
History of Present Illness H&P Date: 12/29/21 Chief Complaint: Bilateral inguinal hernia 66-year-old female seen in the office 6 weeks ago. Patient with complaints of 2-3 months left groin discomfort with bulge. Symptoms aggravated by standing. No history of prior hernias. Past Medical History Past Medical History: GERD/Reflux, Hyperlipidemia, Osteoarthritis (OA) Additional Past Medical History / Comment(s): " has left hip pain when rotated- uses pillow under knees",cholesterol resolved with wt loss,occas fluid retention joie legs History of Any Multi-Drug Resistant Organisms: None Reported Past Surgical History: Orthopedic Surgery Additional Past Surgical History / Comment(s): ORIF RT FOOT, ARTHROSCOPIC LEFT KNEE. D & C. COLONOSCOPY Past Anesthesia/Blood Transfusion Reactions: Motion Sickness Smoking Status: Never smoker - Past Family History Mother Family Medical History: Cancer Additional Family Medical History / Comment(s): BREAST CANCER Father Family Medical History: CVA/TIA Medications and Allergies Home Medications Medication Instructions Recorded Confirmed Type No Known Home Medications 03/27/19 12/29/21 History Allergies Allergy/AdvReac Type Severity Reaction Status Date / Time adhesive tape Allergy Rash/Hives,REDNESS Verified 12/29/21 08:43 AND BUMPS"-paper tape is ok Sulfa (Sulfonamide Allergy Rash/Hives Verified 12/29/21 08:43 Antibiotics) Surgical - Exam Physical exam: General: Well-developed, well-nourished HEENT: Normocephalic, sclerae nonicteric Abdomen: Nontender, nondistended, reducible bilateral inguinal hernia left greater than right Extremities: No edema Neuro: Alert and oriented Assessment and Plan (1) Bilateral inguinal hernia Narrative/Plan: 66-year-old female with bilateral inguinal hernia identified on recent exam. Patient is primarily symptomatic on the left-hand side although does admit to some mild soreness on the right. We'll proceed with laparoscopic bilateral da Driss assisted repair inguinal hernia with mesh, possible open. Risks of bleeding, infection, recurrence, bladder and bowel injury, numbness, nerve injury, conversion to an open procedure were discussed with the patient. The patient understands and wishes to proceed. Status: Acute Code(s): K40.20 - BI INGUINAL HERNIA, W/O OBST OR GANGRENE, NOT SPCF RECUR SNOMED Code(s): 54125696
[~2021-12-30 08:42] MED LIST changes: +ACETAMINOPHEN TAB 500 MG TAB PO PRN; +DEXAMETHASONE SOD PHOSPHATE 4 MG/ML 1 ML VIAL IV ONE; +HEPARIN SODIUM,PORCINE/PF 5,000 UNIT/0.5 ML SYRINGE SQ PRN; +HYDROmorphone 0.5 MG/0.5 ML SYRINGE IVP PRN; -LIDOCAINE 1% 20 ML VIAL (10MG/ML) FOR IV START INTRADERMA PRN; +MIDAZOLAM 2 MG/2 ML VIAL IV PRN; +ONDANSETRON 4 MG/2 ML VIAL IVP ONE; +SCOPOLAMINE 1 MG/72 HR PATCH TRANSDERM ONE
[2021-12-30] MEDS ORDERED: LIDOCAINE 1% (10MG/ML) FOR IV START INTRADERMA ONE (09:30)
[2021-12-30] MEDS ORDERED: fentaNYL (PF) 50 MCG/ML 2 ML AMP IV ONE (10:02)
[2021-12-30] MEDS ORDERED: ePHEDrine 50 MG/ML 1 ML VIAL ONE (10:15)
[2021-12-30] MEDS ORDERED: fentaNYL (PF) 50 MCG/ML 2 ML AMP ONE (10:15)
[2021-12-30] MEDS ORDERED: ROPIVACAINE 5 MG/ML 30 ML VIAL ONE (10:15)
[2021-12-30] MEDS ORDERED: LIDOCAINE 2% INJ 20 MG/ML (2 ML VIAL) ONE (10:15)
[2021-12-30] MEDS ORDERED: GLYCOPYRROLATE 0.2 MG/ML 2 ML VIAL ONE (10:15)
[2021-12-30] MEDS ORDERED: NEOSTIGMINE 1 MG/ML 10 ML VIAL ONE (10:15)
[2021-12-30] MEDS ORDERED: ROCURONIUM 10 MG/ML (5 ML VIAL) IV ONE (10:15)
[2021-12-30] MEDS ORDERED: SUCCINYLCHOLINE CHLORIDE 200 MG/10 ML VIAL IV ONE (10:15)
[2021-12-30] MEDS ORDERED: PROPOFOL 10 MG/ML 20 ML VIAL IV ONE (10:15)
[2021-12-30] MEDS ORDERED: SODIUM CHLORIDE 0.9% (PF) 10 ML VIAL ONE (10:15)
[2021-12-30] MEDS ORDERED: diphenhydrAMINE 50 MG/ML 1 ML VIAL ONE (10:15)
[2021-12-30] MEDS ORDERED: DEXAMETHASONE SOD PHOSPHATE 10 MG/ML 1 ML VIAL ONE (10:15)
[2021-12-30] MEDS ORDERED: BUPIVACAINE (PF) 0.5% 30 ML VIAL SQ ONE ×2 (10:25→10:53)
[2021-12-30] MEDS ORDERED: LACTATED RINGERS 1,000 ML IV ONE (11:20)
--- NOTE | 2021-12-30 11:32 | P.ANPRN ---
Procedure Note - Anesthesia - Nerve Block Performed Bilateral Transversus Abdominis Single Time Out Performed: Yes (1002) Date of Procedure: 12/30/21 Procedure Start Time: 10:03 Procedure Stop Time: 10:09 Location of Patient: PreOp Indication: Acute Post-Operative Pain, Requested by Surgeon Specifically requested for management of pain by DrDorian: Wm Donald Sedation Type: Sedate with meaningful contact maintained Preparation: Sterile Prep Position: Supine Catheter: None Needle Types: Pajunk Needle Gauge: 21 Ultrasound used to visualize needle placement: Yes Ultrasound used to observe medication spread: Yes Injectate: 0.5% Ropivacaine (see comment for volume) (15cc + 10cc nacl pf each side) Blood Aspirated: No Pain Paresthesia on Injection Noted: No Resistance on Injection: Normal Image Stored and Saved: Yes Events: Uneventful and Well Tolerated
[2021-12-30 12:58] VITALS: TEMP 97.5
--- NOTE | 2021-12-30 13:13 | P.OP ---
Date of Procedure: 12/30/21 Procedure(s) Performed: PREOPERATIVE DIAGNOSIS: Bilateral inguinal hernia POSTOPERATIVE DIAGNOSIS: Same PROCEDURE: Laparoscopic da Driss assisted repair bilateral inguinal hernia with mesh SURGEON: Dr. Donald ANESTHESIA: General OPERATIVE PROCEDURE DETAILS: Patient was placed in the operating table in the supine position. The patient was placed under general anesthesia. The abdomen was prepped and draped in usual sterile fashion. A small curvilinear supraumbilical incision was made. The fascia was retracted anteriorly with Brocket forceps. The Veress needle was inserted. The saline drop test was normal. Insufflation took place to 15 mmHg. An 8 mm trocar was placed into the peritoneal cavity. 2 additional 8 mm trochars were placed in the right upper quadrant and left upper quadrant under visualization. The robotic arms were then brought in and docked into place. The fenestrated bipolar was used in the left arm and the laparoscopic roland was utilized in the right arm. A 30 8 mm scope was used in the up position. The peritoneal cavity was inspected. The patient had an obvious indirect hernia on the left-hand side that was imhzb-[id number]-sized. I could not visualize a definite hernia on the right until the peritoneal dissection took place.. The peritoneum was incised in a horizontal fashion cephalad to the internal inguinal ring. This was carried from the right side across the midline to the left side so we had 1 incision on the peritoneum. The right side was first addressed. Following that careful dissection of the preperitoneal space took place. This took place using both electrocautery, sharp dissection but primarily blunt dissection. Visualization of the pubic tubercle and Sadi's ligament took place medially. Full dissection took place laterally as well. The patient was noted to have a portion of retroperitoneal fat entering the inguinal canal. Thus was reduced back into the preperitoneal space and excised. The patient's round ligament bilaterally was divided as the patient's peritoneum was densely adherent to that area making appropriate mesh placement challenging without mobilization of the round ligament. Ligament was divided after clips were placed. The left side was then addressed in a similar fashion. The peritoneal hernia sac was fully dissected. Once we had adequate space the large Pro jv baseball coach mesh was advanced into the preperitoneal space and flattened out appropriately to cover all potential hernia sites bilaterally. A portion of the right-sided mesh was excised medially so there was less overlapping mesh present. Once both portions of mesh were in place I did use a vertical stitch just superior to the pubic symphysis. This was a short running 20 absorbable be locked suture. The peritoneal defect was then closed using a absorbable 2-0 VLok suture. The hernia sac on the left was incorporated into the peritoneal closure to help prevent future recurrence. The pneumoperitoneum was then evacuated. The skin of all 3 sites was closed using a 4-0 Monocryl stitch. Skin glue was then applied. TYPE OF MESH USED: Large Pro jv baseball coach LOCATION OF MESH: Preperitoneal FIXATION: Absorbable 20V LOC PREOPERATIVE DISCUSSION ON SMOKING CESSASTION: Yes PREOPERATIVE DISCUSSION ON MORBID OBESITY: Yes PREOPERATIVE DISCUSSION ON APPROPRIATE USE OF NARCOTIC USE: Yes PREOPERATIVE EDUCATION: Multi Modal, Smoking Cessation and Weight Loss with BMI over 35. DISPOSITION: Stable to recovery room
[2021-12-30 14:09] VITALS: RESP 20
[2021-12-30 14:37] VITALS: BP 138/72; PULSE 66
== END 2021-12-30 14:47 | disposition home or self-care (01) ==
LOC: OR 08:42
PROVIDERS: ATTEND Surgery
DX: K40.20 Bilateral inguinal hernia, without obstruction or gangrene, not specified as recurrent (principal); G89.18 Other acute postprocedural pain; D17.9 Benign lipomatous neoplasm, unspecified; K21.9 Gastro-esophageal reflux disease without esophagitis; E78.5 Hyperlipidemia, unspecified; M19.90 Unspecified osteoarthritis, unspecified site; M25.552 Pain in left hip; Z98.890 Other specified postprocedural states; Z80.3 Family history of malignant neoplasm of breast; Z82.3 Family history of stroke; Z91.040 Latex allergy status; Z88.1 Allergy status to other antibiotic agents; T75.3XXD Motion sickness, subsequent encounter
CPT/HCPCS: 64488; 86900; 86901; 88304; 86850; 49650; C1781; J2250; J0330; J1200; J1100 ×2; J2710; J0690; J2405; J3010; J2795; J2704; J1644; J2001

== ENCOUNTER → 2023-09-24 | Outpatient (CLI) | payer MEDICARE ==
[2023-09-24 15:38] LABS: INR 1.01 sec (0.93-1.11); Prothrombin Time 10.9 sec (9.9-11.9)
[2023-09-24 15:41] LABS: Blood Urea Nitrogen 23.5 mg/dL (9.0-27.0); Calcium 9.5 mg/dL (8.7-10.3); Carbon Dioxide 27.7 mmol/L (21.6-31.8); Chloride 104 mmol/L (96-109); Glucose 94 mg/dL (70-110); Potassium 4.6 mmol/L (3.5-5.5); Sodium 142 mmol/L (135-145)
[2023-09-24 17:04] LABS: Basophils # (A) 0.09 X 10*3/uL (0.00-0.10); Basophils % (A) 1.4 %; Eosinophils # (A) 0.21 X 10*3/uL (0.04-0.35); Eosinophils % (A) 3.3 %; HCT 47.5 % (37.2-46.3); HGB 15.1 g/dL (12.0-15.0); Lymphocytes # (A) 1.75 X 10*3/uL (0.90-5.00); Lymphocytes % (A) 27.9 %; MCH 30.1 pg (27.0-32.0); MCHC 31.8 g/dL (32.0-37.0); MCV 94.8 FL (80.0-97.0); Mean Platelet Volume 11.6 FL (9.5-12.2); Monocytes # (A) 0.44 X 10*3/uL (0.20-1.00); NRBC Per 100 WBC 0 X 10*3/uL (0.00-0.01); Neutrophils # (A) 3.77 X 10*3/uL (1.80-7.70); Neutrophils % (A) 60.1 %; Platelet Count 232 X 10*3/uL (140-440); RBC 5.01 X 10*6/uL (4.10-5.20); RDW 13.2 % (11.5-14.5); WBC 6.28 X 10*3/uL (4.50-10.00)
== END | disposition home or self-care (01) ==
LOC: LABPAT 09:04
PROVIDERS: ATTEND Orthopaedic Surgery
DX: Z01.818 Encounter for other preprocedural examination (principal); M16.12 Unilateral primary osteoarthritis, left hip; R00.1 Bradycardia, unspecified; Z22.322 Carrier or suspected carrier of Methicillin resistant Staphylococcus aureus
CPT/HCPCS: 36415; 80048; 85025; 85610; 86850; 86900; 86901; 87070; 93005

== ENCOUNTER 2023-10-04 05:51 | Day surgery (SDC) | payer MEDICARE, OTHER ==
--- NOTE | 2023-10-03 14:12 | HP ---
HISTORY AND PHYSICAL DATE OF SCHEDULED SURGERY: 10/04/2023. HISTORY OF PRESENT ILLNESS: Sharla Chopra is a 68-year-old patient, seen with symptomatic left hip osteoarthritis. We discussed options regarding treatment. She elected to proceed with left total hip arthroplasty via direct anterior approach. Consent regarding procedure was obtained. PAST MEDICAL HISTORY: Hyperlipidemia. PAST SURGICAL HISTORY: Foot surgery. DAILY MEDICATIONS: None. ALLERGIES: None reported. SOCIAL HISTORY: She denies tobacco use. PHYSICAL EVALUATION OF LEFT HIP: She has limited range of motion with pain. Positive hip impingement sign. Straight- leg raise is negative. Her distal neurovascular exam is intact. RADIOGRAPHS: Her left hip revealed severe osteoarthritic changes. IMPRESSION: Left hip osteoarthritis. PLAN: Direct anterior left total hip arthroplasty. MMODL / IJN: [id number] /
[~2023-10-04 05:51] MED LIST changes: -ACETAMINOPHEN TAB 500 MG TAB PO PRN; -DEXAMETHASONE SOD PHOSPHATE 4 MG/ML 1 ML VIAL IV ONE; -HEPARIN SODIUM,PORCINE/PF 5,000 UNIT/0.5 ML SYRINGE SQ PRN; -HYDROmorphone 0.5 MG/0.5 ML SYRINGE IVP PRN; -LACTATED RINGERS 1,000 ML IV SCH; -MIDAZOLAM 2 MG/2 ML VIAL IV PRN; -ONDANSETRON 4 MG/2 ML VIAL IVP ONE; -SCOPOLAMINE 1 MG/72 HR PATCH TRANSDERM ONE; +TRANEXAMIC 1,000 MG/100ML-NACL 1,000 MG in SALINE 1 100ML.BAG IVPB PRN
[2023-10-04] MEDS ORDERED: LIDOCAINE 1% (10MG/ML) FOR IV START INTRADERMA PRN (06:10)
[2023-10-04] MEDS ORDERED: droPERidol 5 MG/2 ML VIAL IVP ONE (06:10)
[2023-10-04] MEDS: IV FLUID CONTINUATION 1,000 ML IV ONE (06:16)
[2023-10-04] MEDS: LACTATED RINGERS 1,000 ML IV SCH (06:47)
[2023-10-04] MEDS: DEXAMETHASONE SOD PHOSPHATE 4 MG/ML 1 ML VIAL IV ONE (06:48)
[2023-10-04] MEDS: ONDANSETRON 4 MG/2 ML VIAL IVP ONE (06:48)
[2023-10-04] MEDS: MELOXICAM 7.5 MG TAB PO PRN (06:48)
[2023-10-04] MEDS: ACETAMINOPHEN TAB 500 MG TAB PO PRN (06:48)
[2023-10-04] MEDS: MIDAZOLAM 2 MG/2 ML VIAL IVP ONE (07:07)
[2023-10-04] MEDS: fentaNYL (PF) 50 MCG/ML 2 ML AMP IVP ONE (07:07)
[2023-10-04] MEDS: SCOPOLAMINE 1 MG/72 HR PATCH TRANSDERM STA (07:22)
[2023-10-04] MEDS ORDERED: GLYCOPYRROLATE 0.2 MG/ML 2 ML VIAL ONE (07:26)
[2023-10-04] MEDS ORDERED: fentaNYL (PF) 50 MCG/ML 2 ML AMP ONE (07:26)
[2023-10-04] MEDS ORDERED: PHENYLEPHRINE-0.9% NACL SYG 1,000 MCG/10 ML SYRINGE ONE (07:26)
[2023-10-04] MEDS ORDERED: PROPOFOL 10 MG/ML 20 ML VIAL IV ONE (07:26)
[2023-10-04] MEDS ORDERED: TRANEXAMIC 1,000 MG/100ML-NACL PREMIX BAG ONE (07:26)
[2023-10-04] MEDS ORDERED: NEOSTIGMINE 1 MG/ML 10 ML VIAL ONE (07:26)
[2023-10-04] MEDS ORDERED: LABETALOL 5 MG/ML VIAL MDV ONE (07:26)
[2023-10-04] MEDS ORDERED: ROPIVACAINE 5 MG/ML 30 ML VIAL ONE (07:26)
[2023-10-04] MEDS ORDERED: ePHEDrine 50 MG/ML 1 ML VIAL ONE (07:26)
[2023-10-04] MEDS ORDERED: ROCURONIUM 10 MG/ML (5 ML VIAL) IV ONE (07:26)
[2023-10-04] MEDS ORDERED: SUCCINYLCHOLINE CHLORIDE 200 MG/10 ML VIAL IV ONE (07:26)
[2023-10-04] MEDS ORDERED: LIDOCAINE 1% INJ 10MG/ML (20 ML MDV) ONE (07:26)
[2023-10-04] MEDS: ceFAZolin 1,000 MG in SODIUM CHLORIDE 0.9% 1,000 ML IRRIGATION ONE (07:30)
[2023-10-04] MEDS: LACTATED RINGERS 1,000 ML IV ONE (08:15)
--- NOTE | 2023-10-04 08:32 | P.ANPRN ---
Procedure Note - Anesthesia - Nerve Block Performed Left Wero Single Time Out Performed: Yes ([id number]) Date of Procedure: 10/04/23 Procedure Start Time: : Procedure Stop Time: :12 Location of Patient: PreOp Indication: Acute Post-Operative Pain, Requested by Surgeon Specifically requested for management of pain by DrDorian: Dave Murguia Sedation Type: Sedate with meaningful contact maintained Preparation: Sterile Prep Position: Supine Catheter: None Needle Types: Pajunk Needle Gauge: 21 Ultrasound used to visualize needle placement: Yes Ultrasound used to observe medication spread: Yes Injectate: 0.5% Ropivacaine (see comment for volume) (30cc) Blood Aspirated: No Pain Paresthesia on Injection Noted: No Resistance on Injection: Normal Image Stored and Saved: Yes Events: Uneventful and Well Tolerated
[2023-10-04] MEDS ORDERED: HYDROcodone/APAP 5-325MG 1 EACH TAB PO PRN (08:53)
[2023-10-04] MEDS ORDERED: NALOXONE 0.4 MG/ML 1 ML VIAL IV PRN (08:53)
[2023-10-04] MEDS ORDERED: ONDANSETRON 4 MG/2 ML VIAL IVP PRN (08:53)
[2023-10-04] MEDS ORDERED: LACTATED RINGERS 1,000 ML IV ONE (08:53)
[2023-10-04] MEDS ORDERED: HYDROcodone/APAP 7.5-325MG 1 EACH TAB PO PRN (08:53)
[2023-10-04] MEDS ORDERED: HYDROmorphone 0.5 MG/0.5 ML SYRINGE IVP PRN ×3 (08:53)
--- NOTE | 2023-10-04 08:53 | P.OP ---
Date of Procedure: 10/04/23 Preoperative Diagnosis: Left hip osteoarthritis Postoperative Diagnosis: Left hip osteoarthritis Procedure(s) Performed: Direct anterior left total hip arthroplasty Implants: 1. DePuy [place] 135 degree standard collared KA size 11 press-fit femoral stem 2. DePuy [place] 50 mm press-fit acetabular shell 3. De[employer]uy [place] neutral polyethylene acetabular liner 32 mm ID 50 mm OD 4. Biolox delta ceramic femoral head +1 32 mm Anesthesia: GETA, local (Erector spinae block) Surgeon: Dave Murguia Chemical Equipment Sales Engineer #1: Paul Chan Estimated Blood Loss (ml): 40 Pathology: none sent Condition: stable Disposition: PACU Indications for Procedure: 68-year-old patient seen with symptomatic left hip osteoarthritis. After having treatment options discussed, she elected to proceed with total hip arthroplasty. Operative Findings: See description of procedure Description of Procedure: The patient was taken to the operative suite. Patient underwent a general anesthetic by the department of anesthesia. Patient was then transferred to the [place] table. Patient was given preoperative IV antibiotics and TXA. Both lower extremities were placed in standard leg spars. The hip was then prepped and draped in the normal sterile orthopedic fashion. A standard anterior incision was made beginning 3 cm lateral and 1 cm distal to the ASIS extending 10 cm. Dissection was then carried down through the subcutaneous soft tissues down to the fascia overlying the tensor fascia denisha. An incision was now made through the fascia. Careful dissection was taken down exposing the tensor fascia denisha muscle. A Cobra retractor was now placed along the medial femoral neck and a second one along the lateral femoral neck. The venous circumflex vessels were now identified, cauterized and clipped. We identified the anterior hip capsule. An incision was made through the hip capsule along the lateral border. I performed a partial anterior capsulectomy. Retractors were now placed around the femoral neck itself. A femoral neck cut was now made with a sagittal saw. It was completed with an osteotome at the lateral neck area. The femoral head was now removed without difficulty. The extremity was now rotated to 60 of external rotation. It was locked in position. Residual labrum was now debrided out. Serial reaming was performed of the acetabulum while John bai sisted holding an anterior retractor for exposure. Once we reached the appropriate size and a trial was position and fit nicely. The appropriate size was now chosen opened and made available. It was introduced into the acetabulum without difficulty. The C-arm/fluoroscopy was now brought into the operative field. We made sure we had a true AP pelvic view. We now under direct C-arm/fluoroscopy introduced into the acetabular component with appropriate version and inclination. I held the cup in appropriate position well John CAREY used a mallet to seat the acetabular component. I noted the component now to be well seated and stable. Acetabular cup introduce her was removed. The C-arm was pulled back. An appropriate liner was introduced and clicked into position. It was felt to be stable. At this point retractors were removed. The extremity was now placed into 140 external rotation with no traction. The leg was now dropped to the ground and adducted. Appropriate retractors were now positioned along the proximal femur. We also placed our femoral look into position. Additional capsular releasing was performed to gain access to the proximal femur. We now used a box osteotome. A canal finder was now utilized. Serial broaching was now performed with the assistance of John CAREY tapping the broaches down with a mallet while held the broach in appropriate rotation and position. This was done until we reached the appropriate size with good overall rotational stability. Appropriate calcar planing was performed. A trial head/neck was placed into position. The hip was now reduced. The C- arm/fluoroscopy was brought back into the operative field. I obtained an AP pelvis which demonstrated adequate leg length alignment. The trial components appeared adequately sized and positioned. The C-arm/fluoroscopy was pulled back. Retractors were repositioned and the hip was dislocated. The leg was again taken down to the ground and adducted. Appropriate retractors were repositioned as well as the femoral hook. All trial components were removed. The femoral implant was opened along with the femoral head. The femoral implant was introduced on the appropriate handle into our pre-broached area. I held the component position well John CAREY used a mallet to seat the femoral component. The femoral component was now noted to be well seated and stable.. The femoral head was introduced with good positioning and fixation noted. Retractors were now removed. The hip was now reduced. There appeared be good positioning of the hip confirmed on intraoperative fluoroscopy. Spot films were obtained to document this. A second gram of TXA was given. Bipolar cautery had been utilized intermittently through the procedure for hemostasis. The wound was irrigated copiously with pulse lavage mechanical irrigation. The fascia was repaired with Vicryl suture. The subcutaneous soft tissues were repaired in layers with Vicryl suture. The skin was approximated with pernio/Dermabond. Sterile dressings were applied. Patient was then awakened, transferred to a bed and taken to recovery in stable condition. John CAREY assisted with the co mplex procedure.
--- NOTE | 2023-10-04 08:55 | XR ---
EXAMINATION TYPE: XR Hip Limited LT DATE OF EXAM: 10/04/2023 COMPARISON: NONE HISTORY: Postop TECHNIQUE: 6 view submitted. FINDINGS: There is postsurgical change compatible hip replacement surgery. IMPRESSION: 1. Postoperative change.
--- NOTE | 2023-10-04 08:55 | FL ---
EXAMINATION TYPE: FL guidance operating room DATE OF EXAM: 10/04/2023 HISTORY: Fluoroscopy time Total dose area product (DAP) in uGy*m?, mGy*cm? (or similar): 0.3110 IMPRESSION: 1. Fluoroscopy time.
[2023-10-04 09:18] VITALS: TEMP 96.8
[2023-10-04] MEDS: HYDROmorphone 0.5 MG/0.5 ML SYRINGE IVP PRN (09:35)
[2023-10-04 12:54] VITALS: BP 137/79; PULSE 67; RESP 18
== END 2023-10-04 12:59 | disposition home health service (06) ==
LOC: OR 05:51
PROVIDERS: ATTEND Orthopaedic Surgery
DX: M16.12 Unilateral primary osteoarthritis, left hip (principal); E78.5 Hyperlipidemia, unspecified; G89.18 Other acute postprocedural pain; K21.9 Gastro-esophageal reflux disease without esophagitis; Z79.899 Other long term (current) drug therapy
CPT/HCPCS: 97530; 97161; 64447; 73501; 27130; C1776; J2250; J0330; J1100; J2710; J0690 ×2; J2405; J2001; J3010; J2795; J2704; J1170; J2371; J1920; J1596

== ENCOUNTER 2023-11-08 17:05 | Emergency (ER) | payer MEDICARE ==
--- NOTE | 2023-11-08 17:27 | ED ---
General Adult HPI - General Chief complaint: Allergic Reaction Stated complaint: allergic reaction Time Seen by Provider: 11/08/23 17:13 Source: patient Mode of arrival: ambulatory Limitations: no limitations - History of Present Illness Initial comments: Dictation was produced using [employer] dictation software. please excuse any grammatical, word or spelling errors. Chief Complaint: 68-year-old female with allergic reaction History of Present Illness: Patient 68-year-old female she presents emergency department with allergic reaction. Her is an anesthesiologist who is retired. Patient was making herself a salad because she has been trying to lose weight. She had using readings that she has never had in the past. She had some tahini for the first time and seconds after she licked this wound she began experiencing acute sore throat abdominal pain and itching. Patient denies any trouble breathing. She notices that her voice seems a little more hoarse. Patient does not know of any food allergies. The ROS documented in this emergency department record has been reviewed and confirmed by me. Those systems with pertinent positive or negative responses have been documented in the HPI. All other systems are other negative and/or noncontributory. - Related Data Previous Rx's Medication Instructions Recorded Aspirin [Adult Low Dose Aspirin EC] 81 mg PO BID #60 tab 10/04/23 HYDROcodone/APAP 5-325MG [[place] 1 tab PO Q6HR PRN #28 tab 10/04/23 5-325] Sennosides/Docusate Sodium 2 each PO DAILY PRN #30 tablet 10/04/23 [Senna-S 8.6-50 mg Tablet] EPINEPHrine (Auto Inject) [Epipen] 0.3 mg IM ONCE PRN #2 each 11/08/23 Allergies Allergy/AdvReac Type Severity Reaction Status Date / Time adhesive tape Allergy Rash/Hives,REDNESS Verified 11/08/23 17:11 AND BUMPS"-paper tape is ok Sulfa (Sulfonamide Allergy Rash/Hives Verified 11/08/23 17:11 Antibiotics) Review of Systems ROS Statement: Those systems with pertinent positive or pertinent negative responses have been documented in the HPI. ROS Other: All systems not noted in ROS Statement are negative. Past Medical History Past Medical History: GERD/Reflux, Hyperlipidemia, Osteoarthritis (OA) Additional Past Medical History / Comment(s): " has left hip pain when rotated- uses pillow under knees",cholesterol resolved with wt loss,occas fluid retention joie legs History of Any Multi-Drug Resistant Organisms: None Reported Past Surgical History: Orthopedic Surgery Additional Past Surgical History / Comment(s): ORIF RT FOOT, ARTHROSCOPIC LEFT KNEE. D & C. COLONOSCOPY Past Anesthesia/Blood Transfusion Reactions: Motion Sickness Past Psychological History: No Psychological Hx Reported Smoking Status: Never smoker Past Alcohol Use History: None Reported, Rare Past Drug Use History: None Reported - Past Family History Mother Family Medical History: Cancer Additional Family Medical History / Comment(s): BREAST CANCER Father Family Medical History: CVA/TIA General Exam - General Exam Comments Initial Comments: PHYSICAL EXAM: General Impression: Alert and oriented x3, not in acute distress, mild abnormal phonation HEENT: Normocephalic atraumatic, extra-ocular movements intact, pupils equal and reactive to light bilaterally, mucous membranes moist. Cardiovascular: Heart regular rate and rhythm Chest: Able to complete full sentences, no retractions, no tachypnea Abdomen: abdomen soft, some epigastric palpatory tenderness, non-distended, no organomegaly Musculoskeletal: Pulses present and equal in all extremities, no peripheral edema Motor: no focal deficits noted Neurological: CN II-XII grossly intact, no focal motor or sensory deficits noted Skin: Flushed Psych: Normal affect and mood Limitations: no limitations Course Vital Signs 11/08/23 11/08/23 17:08 17:40 Temperature 98 F 97.6 F Pulse Rate 109 H 85 Respiratory 18 16 Rate Blood Pressure 116/70 123/76 O2 Sat by Pulse 95 96 Oximetry Medical Decision Making - Medical Decision Making Was pt. sent in by a medical professional or institution (, PA, PHARMACY SALES ASSISTANT, urgent care, hospital, or care home...) When possible be specific @ -No Did you speak to anyone other than the patient for history (EMS, parent, family, police, friend...)? What history was obtained from this source @ - who is an anesthesiologist at the bedside states that concerned she is having an allergic reaction Did you review nursing and triage notes (agree or disagree)? Why? @ -I reviewed and agree with nursing and triage notes Were old charts reviewed (outside hosp., previous admission, EMS record, old EKG, old radiological studies, urgent care reports/EKG's, care home records)? Report findings @ -No old charts were reviewed Differential Diagnosis (chest pain, altered mental status, abdominal pain women, abdominal pain men, vaginal bleeding, musculoskeletal, weakness, fever, dyspnea, syncope, headache, dizziness, GI bleed, back pain, seizure, CVA, palpatations, mental health)? @ -Angioedema, anaphylaxis, esophagitis EKG interpreted by me (3pts min.). @ -None done X-rays interpreted by me (1pt min.). @ -None done CT interpreted by me (1pt min.). @ -None done U/S interpreted by me (1pt. min.). @ -None done What testing was considered but not performed or refused? (CT, X-rays, U/S, labs)? Why? @ -None What meds were considered but not given or refused? Why? @ -None Was smoking cessation discussed for >3mins.? @ -No Were there social determinants of health that impacted care today? How? (Homelessness, low income, unemployed, alcoholism, drug addiction, transportation, low edu. Level, literacy, decrease access to med. care, shelter, rehab)? @ -No Was there de-escalation of care discussed even if they declined (Discuss DNR or withdrawal of care, Hospice)? DNR status @ -No What co-morbidities impacted this encounter? (DM, HTN, Smoking, COPD, CAD, Cancer, CVA, ARF, Chemo, Hep., AIDS, mental health diagnosis, sleep apnea, morbid obesity)? @ -None Was patient admitted / discharged? Hospital course, mention meds given and route, prescriptions, significant lab abnormalities, going to OR and other pertinent info. @ -68-year-old female presents with allergic reaction after having acute symptoms after eating taking knee. Vital signs stable. Patient has acute allergic symptoms involving multiple organ systems. Clinical presentation concerning for anaphylaxis. Patient given EpiPen, antihistamines. Patient served emergency department for 2 and half hours. Reevaluated bedside at 7:51 PM with resolution of symptoms and found to be stable to condition. Patient discharged. Given prescription for PHARMACY SALES ASSISTANT autoinjectors. Vies follow-up with primary care doctor and/or learning and development assistant. Did you discuss the management of the patient with other professionals (professionals i.e. , PA, PHARMACY SALES ASSISTANT, lab, RT, psych nurse, neonatal social worker, field broomer, teacher, service officer, comp field case manager)? Give summary @ -No Was critical care preformed (if so, how long)? @ -No Undiagnosed new problem with uncertain prognosis? @ -No Drug Therapy requiring intensive monitoring for toxicity (Heparin, Nitro, Insulin, Cardizem)? @ -No Were any procedures done? @ -No Diagnosis/symptom? Acute, or Chronic, or Acute on Chronic? Uncomplicated (without systemic symptoms) or Complicated (systemic symptoms)? @ -Anaphylaxis Side effects of treatment? @ -No Exacerbation, Progression, or Severe Exacerbation? @ -No Poses a threat to life or bodily function? How? (Chest pain, [place], [place], pneumonia, PE, COPD, DKA, ARF, appy, cholecystitis, CVA, Diverticulitis, Homicidal, Suicidal, threat to staff... and all critical care pts) @ -yes Disposition Clinical Impression: Anaphylaxis Disposition: HOME SELF-CARE Condition: Fair Instructions (If sedation given, give patient instructions): Anaphylaxis (ED) Prescriptions: EPINEPHrine (Auto Inject) [Epipen] 0.3 mg IM ONCE PRN #2 each PRN Reason: Anaphylaxis Is patient prescribed a controlled substance at d/c from ED?: No Referrals: Sourav Jacobs DO [Primary Care Provider] - 1-2 days Time of Disposition: 19:49
[2023-11-08] MEDS: FAMOTIDINE 20 MG/2 ML VIAL IV STA (17:48)
[2023-11-08] MEDS: diphenhydrAMINE 50 MG/ML 1 ML VIAL IVP STA (17:49)
[2023-11-08] MEDS: SODIUM CHLORIDE 0.9% 1,000 ML IV STA (17:49)
[2023-11-08 18:12] VITALS: RESP 16
[2023-11-08 20:01] VITALS: BP 145/88; PULSE 88; TEMP 98.2
== END 2023-11-08 20:02 | disposition home or self-care (01) ==
LOC: EC 17:05
DX: T78.40XA Allergy, unspecified, initial encounter
CPT/HCPCS: 99283

== ENCOUNTER → 2023-11-29 | Outpatient (CLI) | payer MEDICARE, OTHER ==
[2023-11-30 05:56] LABS: Clam IgE <0.10 kU/L; Codfish IgE <0.10 kU/L; Egg White IgE <0.10 kU/L; Peanut IgE 0.11 kU/L; Scallop IgE <0.10 kU/L; Shrimp IgE <0.10 kU/L; Soybean IgE 0.26 kU/L; Walnut IgE (Food) <0.10 kU/L
[2023-11-30 12:24] LABS: Apple IgE Class CLASS 0/1; Avocado Class CLASS 0; Banana IgE Class CLASS 0; Beef IgE <0.10 kU/L (<0.10); Beef IgE Class CLASS 0; Celery IgE <0.10 kU/L (<0.10); Celery IgE Class CLASS 0; Chicken IgE Class CLASS 0; Chocolate IgE Class CLASS 0; Egg Yolk IgE Class CLASS 0; Gluten IgE Class CLASS 0; Hazelnut IgE 0.14 kU/L (<0.10); Hazelnut IgE Class CLASS 0/1; Kiwi IgE <0.10 kU/L (<0.10); Kiwi IgE Class CLASS 0; Latex IgE Class CLASS 0; Lettuce IgE Class CLASS 0; Oat IgE Class CLASS 0; Onion IgE <0.10 kU/L (<0.10); Onion IgE Class CLASS 0; Pork IgE Class CLASS 0; Potato IgE <0.10 kU/L (<0.10); Potato IgE Class CLASS 0; Salmon IgE <0.10 kU/L (<0.10); Salmon IgE Class CLASS 0; Yeast Bakers/Brew IgE <0.10 kU/L (<0.10); Yeast Bakers/Brew IgE Class CLASS 0
== END | disposition home or self-care (01) ==
LOC: LABWHC1 15:52
PROVIDERS: ATTEND Otolaryngology
DX: J30.89 Other allergic rhinitis (principal)
CPT/HCPCS: 36415; 82785; 86003